=== PATIENT | male | born 1945 | race Caucasian/White ===

== ENCOUNTER 2024-08-22 13:25 | Outpatient (AMB) | payer MEDICARE, SELFPAY ==
--- NOTE | 2024-08-22 13:27 | A.OFFPC_ITS ---
Vital Signs 08/22/24 13:34 Height 6 ft Weight 230 lb 8 oz BMI 31.3 BP 138/78 Blood Pressure Location Lt brachial Position Sitting Respiration 13 Pulse 72 Pulse Source Pulse Oximeter Temp 97.1 F Temp Source Oral Pulse Oximetry (%) 96 Oxygen Delivery Method Room Air Intake Visit Reasons: est care Intake Note: New patient to [facility] Corrections Identification Technician Required: No Allergies No Known Allergies Allergy (Verified 08/22/24 13:41) Medication List - Last Reconciled 08/22/24 by ISIDRO LiuP- albuterol sulfate 90 mcg/actuation 2 puffs inhalation QID PRN albuterol sulfate 2.5 mg inhalation alcohol swabs pad topical BID aspirin 81 mg PO DAILY atorvastatin 10 mg PO DAILY blood sugar diagnostic (FreeStyle Lite Strips) As directed blood-glucose meter (FreeStyle Lite Meter kit) As directed budesonide-formoterol 80-4.5 mcg/actuation (Breyna) 2 puffs inhalation cetirizine 10 mg PO DAILY PRN fluticasone propionate 50 mcg/actuation 1 spray intranasal BID lisinopril 2.5 mg PO DAILY metformin 500 mg PO DAILY Tobacco use date assessed: 08/22/24 Fall risk assessment: No Falls in past year Last assessed Fall Risk: 08/22/24 Dental Screening Dental Screen Date: 08/22/24 Did you have a dental visit in the last 12 months?: Yes Did you have a dental problem in the last 6 months where you did not have access to dental care?: No Was dental information given to patient?: Patient has dentist HPI HPI Comments History of Present Illness Details 78 y/o M with obesity, COPD, DM2, HLD, H TN, Vegetarian Diet Health Maintenance Tdap today Specialists: Harris Jacobson in pulm rehab History of Present Illness - The patient is a 78-year-old male pres enting to establish care. Previous PCP: Dr Barnard - i do not have any records. - Significant history of type 2 diabetes , hypertension, hyperlipidemia, and COPD. - Blood glucose control improved with di etary changes, maintaining vegetarian diet. Was on Metformin but stopped taking - COPD symptoms improved post-treatment with a 10-day prednisone regimen. Was tx w/ several ABT. Managed by Pulm. - Reports having imaging of lungs done a nd eval by a surgeon at [facility] for bx, but this did not occur. - Obesity with BMI of 31.3. - Previous medications prescribed includ e albuterol, cetrizine, lisinopril, metformin, aspirin, and atorvastatin. He is only taking his inhalers, nothing else. - Active lifestyle as a reed noted. Review of Systems - Cardiovascular: Denies chest pain. Rep orts blood pressure management with medications. - Respiratory: Reports history of severe respiratory infection, now improved. Engaged in pulmonary rehab. - Endocrine: Reports blood sugar levels usually around 140 mg/dL; morning fasting levels around 106 mg/dL. - Gastrointestinal: Denies gastrointesti nal symptoms. - Musculoskeletal: Denies joint pain or swelling. - Neurological: Denies neurological symp toms. - Dermatological: Denies skin rashes or lesions. Physical Exam Exam Awake alert NAD Scleras nonicteric bilat MMM RRR LS dim throughout, faint exp wheezes, no cough No edema ble, + varicose veins, skin intact, hairless Mood and affect appropriate Results - Labs: A1c level pending. - Imaging: Previous CAT scan with dye co mpleted. - Tests: EKG completed, reportedly katie l. Discussion Notes The patient was informed of their current medical conditions being managed, including type 2 diabetes, COPD, and hypertension. Dietary modifications and regular blood glucose monitoring were encouraged to maintain sugar levels within the target range. Respiratory management was discussed, and inhaler use was reviewed. Enrollment in pulmonary rehab was acknowledged as beneficial for improving lung function. The patient was advised to continue current medications and dietary modifications. I will follow up with pending lab results, and the patient should return for regular check-ups or if any concerns arise. Assessment and Plan 1. Type 2 Diabetes Mellitus - diet controlled currently, was on metf ormin before - Emphasize diet and monitoring. - Check A1c. 2. Chronic Obstructive Pulmonary Disease - Use albuterol PRN & Breyna as directed , - Attend pulmonary rehab. - Routine fu with Dr Samuel Wheatley today 3. Essential Hypertension - was on lisinopril, WNL today w/o meds. - Monitor regularly. 4. Hyperlipidemia - Stopped atorvastatin. Check labs 5. Obesity - Advise on lifestyle changes for manage ment. 6. Environmental Allergies - Use cetrizine and Flonase PRN. Patient Instructions - Continue current medications as prescr ibed. - Monitor blood sugar daily and follow d ietary recommendations. - Use albuterol inhaler as needed and at tend pulmonary rehab sessions. - Maintain regular follow-up appointment s. - Report any significant changes or conc erns to our office promptly. - Follow up with lab results for further management. - RTO 3 months sAWV, sooner PRN, labs to day, get records for review. Consent The patient consented to lab work including A1c testing to assess diabetic control. Consent was also obtained verbally for continued medication management and lifestyle modification discussions. Patient was informed and verbally consented to the use of an ambient scribe for clinic note documentation during this visit. Total time spent caring for the patient today was 40 minutes. This includes time spent before the visit reviewing the chart, time spent during the visit, and time spent after the visit on documentation, reviewing laboratory results, diagnostic imaging, medications, performing a medically necessary evaluation, counseling on diagnoses, care coordination, ordering appropriate tests, ordering appropriate medications, review of tests performed by other providers, reporting test results with the patient, communication with other healthcare providers. [facility] Medical History (Updated 08/22/24 @ 17:41 by Libia Mcgovern [facility]) No pertinent family history No pertinent past medical history Surgical History (Updated 08/22/24 @ 13:34 by Devorah Tobias MA) No pertinent past surgical history Social History (Updated 08/22/24 @ 13:33 by Devorah Tobias MA) Household Members: Spouse Housing: House Are you a primary medical care evaluation specialist to a significant other at home: No Do you presently have visiting nurse or other home services: No Alcohol intake: current Alcohol intake frequency: a few times a month Patient Tobacco Use Status: Never used Tobacco e-Cigarette/Vaping Use: Never Used Second Hand Smoke Exposure: No service: No Current occupational status: retired Cognitive needs: No Hearing needs: No Vision needs: No Questionnaire PHQ-9 Over the last 2 weeks, how often have you been bothered by any of the following problems? 1. Little interest or pleasure in doing things: not at all 2. Feeling down, depressed, or hopeless: not at all 3. Trouble falling or staying asleep, or sleeping too much: not at all 4. Feeling tired or having little energy: not at all 5. Poor appetite or overeating: not at all 6. Feeling bad about yourself - or that you are a failure or have let yourself or your family down: not at all 7. Trouble concentrating on things, such as reading the newspaper or watching television: not at all 8. Moving or speaking so slowly that other people could have noticed. Or the opposite - being so fidgety or restless that you have been moving around a lot more than usual: not at all 9. Thoughts that you would be better off or of hurting yourself in some way: not at all Total score: 0 Depression Screening Interpretation: Negative Depression Screening Done: Yes 83582 - PHQ-9 Billing: Yes Source: Developed by Drs. Evangelista Sullivan, Marie Ca, Randell Pino and colleagues, with an educational jeremiah from [employer]. Thrive Questionnaire Date Thrive assessed: 08/22/24 I am a: Patient What is your living situation today?: I have a steady place to live Within the past 12 months, did the food you bought not last and you didn't have the money to get more?: Never true Within the past 12 months, did you worry whether your food would run out before you got money to buy more?: Never true Do you have trouble paying for medicines?: No Do you have trouble getting transportation to medical appointments?: No Do you have trouble paying your heating and electricity bill?: No Do you have trouble taking care of your child, family member or friend?: No Do you have trouble with day-to-day activities such as bathing, preparing meals, shopping, managing finances, etc.?: No Are you currently unemployed and looking for a job?: No Are you interested in more education?: Yes Please select the resources that you would like help with: None Currently or been in a relationship where the following occur: No concerns reported THRIVE Score: 0 AUDIT C Alcohol Use Questionnaire (AUDIT-C) 1. How often do you have a drink containing alcohol?: 2-3 times a week 2. How many drinks containing alcohol do you have on a typical day when you are drinking?: 1 or 2 3. How often do you have six or more drinks on one occasion?: Never Total Score: 3 Score Reviewed/Action Taken: Yes NERY-7 AMB Questionnaire NERY-7 Date NERY - 7 assessed: 08/22/24 Feeling nervous, anxious, or on edge: 0 = Not at all Not being able to stop or control worryin = Not at all Worrying too much about different things: 0 = Not at all Trouble relaxin = Not at all Being so restless that it is hard to sit still: 0 = Not at all Becoming easily annoyed or irritable: 0 = Not at all Feeling afraid as if something awful might happen: 0 = Not at all Total NERY-7 score (0-4 normal; 5-9 mild; 10-14 moderate; 15-21 severe): 0 Source: Developed by Drs. Evangelista Sullivan, Marie Ca, Randell Pino and colleagues, with an educational jeremiah from [employer]. NERY-7 Assessment Billing NERY-7 Assessment Tool: NERY-7 Assessment 74128 Physical exam (Primary Care) Vital Signs: Last Vital Signs Temp 97.1 F 08/22/24 13:34 Pulse 72 08/22/24 13:34 Resp 13 08/22/24 13:34 BP 138/78 08/22/24 13:34 Pulse Ox 96 08/22/24 13:34 Oxygen Delivery Method Room Air 08/22/24 13:34 BMI result Body Mass Index 31.3 BMI Assessment/Plan discussion: High BMI High, discussed plan: lifestyle Tobacco/Smoking Status: Tobacco use Status Tobacco use date assessed 08/22/24 08/22/24 13:30 Patient Tobacco Use Status Never used Tobacco 08/22/24 13:33 e-Cigarette/Vaping Use Never Used 08/22/24 13:33 PHQ-9: PHQ-9 Score PHQ-9: Total score 0 08/22/24 13:41 Depression Screening Interpretation: Negative Thrive Assessment: Date of Thrive Assessment Date Thrive assessed 08/22/24 08/22/24 13:30 Currently or been in a relationship where the following occur: No concerns reported Immunizations Boostrix Tdap 2.5 Lf unit-8 mcg-5 Lf/0.5 mL intramuscular syringe Performing Provider: JACOB Liu Performing Location[facility] Administered by: Devorah Tobias MA on 08/22/24 13:42 Dose Route Admin Location Dispensed Lot Number Expiration Date NDC Grip Boss 0.5 mL IM Left Deltoid 0.5 mL [id number] 11/17/26 [id number] [employer] VIS Given Date VIS Provided VIS Publication Date 08/22/24 Single Vaccine 20 Eligibility Eligibility Date Funding Source Not VFC Eligible 08/22/24 Private Coding Level of Care Code New Pt Level 4 (23780) Complex EM visit Add On G2211 Diagnoses Encounter to establish care Z76.89 Need for Tdap vaccination Z23 Obesity (BMI 30-39.9) E66.9 DM type 2 causing complication E11.8 Mixed hyperlipidemia E78.2 Hyperlipidemia type: mixed hyperlipidemia Panlobular emphysema J43.1 COPD type: emphysema Emphysema type: panlobular Vegetarian diet Z78.9 Environmental allergies Z91.09 Primary hypertension I10 Hypertension type: primary hypertension Additional Codes NERY-7 Assessment Billing - NERY-7 Assessment Tool: NERY-7 Assessment 32922 ([id number]) PHQ-9 - 85640 - PHQ-9 Billing: Yes ([id number]) Assessment & Plan Assessment & Plan (1) Encounter to establish care: Code(s): Z76.89 - Persons encountering health services in other specified circumstances (2) Need for Tdap vaccination: Code(s): Z23 - Encounter for immunization Category: Medical (3) Obesity (BMI 30-39.9): Code(s): E66.9 - Obesity, unspecified Category: Medical (4) DM type 2 causing complication: Code(s): E11.8 - Type 2 diabetes mellitus with unspecified complications Category: Medical (5) HLD (hyperlipidemia): Code(s): E78.5 - Hyperlipidemia, unspecified Category: Medical Qualifiers: Hyperlipidemia type: mixed hyperlipidemia Qualified Code(s): E78.2 - Mixed hyperlipidemia (6) COPD (chronic obstructive pulmonary disease): Code(s): J44.9 - Chronic obstructive pulmonary disease, unspecified Category: Medical Qualifiers: COPD type: emphysema Emphysema type: panlobular Qualified Code(s): J43.1 - Panlobular emphysema (7) Vegetarian diet: Code(s): Z78.9 - Other specified health status Category: Social Hx (8) Environmental allergies: Code(s): Z91.09 - Other allergy status, other than to drugs and biological substances Category: Medical (9) HTN (hypertension): Code(s): I10 - Essential (primary) hypertension Category: Medical Qualifiers: Hypertension type: primary hypertension Qualified Code(s): I10 - Essential (primary) hypertension Plan . Orders: Orders Comprehensive Met. Panel Today E11.8 - Type 2 diabetes mellitus with unspecified complications, E78.5 - Hyperlipidemia, unspecified, Z78.9 - Other specified health status Ferritin Today E11.8 - Type 2 diabetes mellitus with unspecified complications, E78.5 - Hyperlipidemia, unspecified, Z78.9 - Other specified health status Hemoglobin A1c Today E11.8 - Type 2 diabetes mellitus with unspecified complications, E78.5 - Hyperlipidemia, unspecified, Z78.9 - Other specified health status Lipid Panel Today E11.8 - Type 2 diabetes mellitus with unspecified complications, E78.5 - Hyperlipidemia, unspecified, Z78.9 - Other specified health status Microalbumin, Random (w Creat) Today E11.8 - Type 2 diabetes mellitus with unspecified complications, E78.5 - Hyperlipidemia, unspecified, Z78.9 - Other specified health status TSH reflex Free T4 Today E11.8 - Type 2 diabetes mellitus with unspecified complications, E78.5 - Hyperlipidemia, unspecified, Z78.9 - Other specified health status Vitamin B12 and Folate Today E11.8 - Type 2 diabetes mellitus with unspecified complications, E78.5 - Hyperlipidemia, unspecified, Z78.9 - Other specified health status Vitamin D 25-OH Total Today E11.8 - Type 2 diabetes mellitus with unspecified complications, E78.5 - Hyperlipidemia, unspecified, Z78.9 - Other specified health status TDaP Immunization Today Z23 - Encounter for immunization Complete Blood Count no Diff Today E11.8 - Type 2 diabetes mellitus with unspecified complications, E78.5 - Hyperlipidemia, unspecified, Z78.9 - Other specified health status IRON PROFILE Today E11.8 - Type 2 diabetes mellitus with unspecified complications, E78.5 - Hyperlipidemia, unspecified, Z78.9 - Other specified health status PSA, Ultra Sensitive Today E11.8 - Type 2 diabetes mellitus with unspecified complications, E78.5 - Hyperlipidemia, unspecified, Z78.9 - Other specified health status Patient Instructions: Patient Instructions - Continue current medications as prescribed. - Monitor blood sugar daily and follow dietary recommendations. - Use albuterol inhaler as needed and attend pulmonary rehab sessions. - Maintain regular follow-up appointments. - Report any significant changes or concerns to our office promptly. - Follow up with lab results for further management. RTO in 3 months Walk-In Care (Urgent Care): We Make it Easy Walk-in for urgent medical issues such as: ? Seasonal Allergies ? Insect Bites ? Cough ? Diarrhea ? Acute Asthma Attacks ? Back, Knee or Joint Pain ? Ear Infection ? Fever without a Rash ? Headaches ? Nausea ? [place] [facility], Rash or Skin Irritation ? Sore Throat ? Sports Physicals ? Vomiting Most insurances are accepted. Patients do not need to be part of the [facility] to seek care at the walk-in clinic. Locations [facility] , [place] [address] ? [phone] [facility] in [place] provides services to ages 18 and over. Open Wednesday-Wednesday: 8 a.m. to 5 p.m. and Wednesday: 9 a.m. to 3 p.m.* *Hours may vary due to staffing availability. To confirm Walk-In Care hours in [place], please call [phone]. [address] [place] [address] ? [phone] [facility] in [place] provides services to ages 12 and over. Open Wednesday-Wednesday: 8 a.m. to 5 p.m. Hours may vary due to staffing availability. To confirm Walk-In Care hours in [place], please call [phone]. LABORATORY SERVICES: [facility] ? Primary Location [address] [place] [address] Wednesday through Wednesday 6:00 AM ? 5:00 PM Wednesday 7:00 AM ? 11:00 AM* [phone] The [facility] is centrally located near the front entrance of the Medical Center for easy outpatient access. Convenient parking is provided for outpatients. *Hours may vary due to staffing availability. To confirm Laboratory hours for any location, please call [phone]. Offsite Location For your convenience, we offer offsite laboratory draw stations at the following locations: [address] [place] [address] ? [facility] [address], [address], [place] Wednesday through Wednesday 7:30 AM ? 1:00 PM* [phone] *Hours may vary due to staffing availability. To confirm Laboratory hours for any location, please call [phone]. [place] ? [facility] [address] [facility] Wednesday through Wednesday 6:00 AM ? 3:30 PM* Wednesday 6:30 AM ? 3 PM* [phone] *Hours may vary due to staffing availability. To confirm Laboratory hours for any location, please call [phone]. [address] [facility] Wednesday through Wednesday 7:30 AM ? 4:00 PM* [phone] *Hours may vary due to staffing availability. To confirm Laboratory hours for any location, please call [phone] [place] [address] Wednesday through 9:00 AM ? 4:00 PM* *Hours may vary due to staffing availability. To confirm Laboratory hours for any location, please call [phone]. Appointments are not necessary. Walk-ins are welcome. Like all the departments throughout the [facility], our Lab undergoes frequent reviews to ensure the quality and accuracy of test results, and our staff takes special pride in its status as a nationally accredited facility. Patient Portal: ONE PATIENT. ONE RECORD. BETTER CARE. [facility] has a fully integrated, cutting- edge mobile electronic health information system that has revolutionized the way we care for our patients and manage our organization. This system improves communication and coordination enabling us to provide safe, higher-quality care, and an overall positive experience for staff and patients. Our first priority, as always, is to deliver the highest quality care possible. The system is running in the background supporting that priority. This portal is for all [facility] services and practices. If you are experiencing any technical difficulties with enrolling or logging into the Patient Portal please complete the [facility] Patient [facility] Technical Support Form. [facility] now offers a new secure on-line interactive tool for patients to review their health information ? ?Patient Portal. This interactive web portal will enable patients and their families to take an active role in their care by providing easy, secure access to their health information via the internet. The Patient Portal provides patients with instant access to their health information, including laboratory results, medications, allergies, demographic information, visit history, and more. In addition to managing their own care, parents and health care proxies with authorized consent will appreciate the ability to access the records of those individuals for whom they provide care. Please note: if you wish to gain access (Proxy) to another patient?s portal, you will be required to come to the Medical Records Department in person at [facility]. Both the patient giving proxy access and the proxy will need to provide photo identification and complete the appropriate authorization. The Patient Portal also allows track their appointments online. The [facility] Patient Portal also saves patients time by allowing them to submit updates to their demographic and contact information prior to their visits. Portal email notifications will also alert patients to any new activity on their portal, such as test results and new appointments. In order to initially enroll in the [facility] Patient Portal, you will need to enter some required information including the following: * your [facility] Medical Record number * your personal home email address * name * date of Please note: In order to enroll in the [facility] Patient Portal, we need to have your email address on file in your electronic medical record. ?The email address needs to be specific for one person (yourself) in order for your Portal enrollment to be successful. ?You can update your email address in person with our Registration staff when you are registering for a hospital visit. ?Otherwise, you will need to come to the Health Information Management (Medical Records) Department at [facility]. ?We are open from Wednesday ? Wednesday from 7:30 a.m. ? 4:30 p.m. ?You will be required to present a photo id. Once you have successfully enrolled in the Patient Portal, you will receive a one-time user id and password for the Portal, sent to your email address. ?This will allow you to log into the Patient Portal within 99 hrs and reset your own logon id and password, and define personal security questions. ?Once your permanent login and password have been set, you can log into the [facility] Patient Portal at any time via the blue button above or from the Portal Logon button on any page of the [facility] website. [facility] encourage all of our patients to enroll in Patient Portal as it presents a valuable opportunity for patients and their families to actively participate in their care and stay healthy Welcome to [facility]. ?We look forward to working with you.
[2024-08-22 13:34] VITALS: BP 138/78; PULSE 72; RESP 13; TEMP 36.2; O2SAT 96; BMI 31.3
--- OUTSIDE RECORDS SUMMARY | 2024-08-22 15:02 | XMS_ITS | Patient Health Record ---
Author Organization 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
== END 2024-08-22 13:57 | disposition home or self-care (01) ==
LOC: HO.HMCFM 13:26
PROVIDERS: PCP Nurse Practitioner Family; Visit Provider Nurse Practitioner Family
DX: E11.8 Type 2 diabetes mellitus with unspecified complications (principal); J43.1 Panlobular emphysema; E66.9 Obesity, unspecified; Z68.31 Body mass index [BMI] 31.0-31.9, adult; Z76.89 Persons encountering health services in other specified circumstances; Z23 Encounter for immunization; E78.2 Mixed hyperlipidemia; Z78.9 Other specified health status; Z91.09 Other allergy status, other than to drugs and biological substances; I10 Essential (primary) hypertension

== ENCOUNTER → 2024-08-22 13:25 | Outpatient (BNVA) | payer MEDICARE, SELFPAY | PROVIDERS: PCP Nurse Practitioner Family; Visit Provider Nurse Practitioner Family | DX: Z13.89 Encounter for screening for other disorder (principal) | CPT/HCPCS: 90471; 90715; 96127; 99202 ==

== ENCOUNTER 2024-08-22 14:02 | Outpatient (REF) | payer MEDICARE, SELFPAY ==
[2024-08-22 18:44] LABS: Hematocrit 42.4 % (42.0-52.0); Hemoglobin 14.6 g/dl (14.0-18.0); Mean Corpuscular HGB Conc 34.4 g/dl (31.0-36.0); Mean Corpuscular Hemoglobin 30.2 pg (27.0-33.0); Mean Corpuscular Volume 87.8 fL (80.0-98.0); Mean Platelet Volume 10.2 fL (9.4-12.4); Platelet Count 256 X10*3/uL (160-400); Red Blood Count 4.83 X10*6/uL (4.60-5.80); Red Cell Distribution Width 13.2 % (11.0-16.0); White Blood Count 10.4 X10*3/uL (4.8-10.8)
[2024-08-22 19:04] LABS: Alanine Aminotransferase 16 U/L (0-40); Albumin Level 4.3 g/dL (3.5-5.0); Alkaline Phosphatase 71 U/L (39-117); Anion Gap 11 (12-20); Aspartate Amino Transferase 24 U/L (5-37); Bilirubin Total 0.4 mg/dL (0.0-1.0); Blood Urea Nitrogen 20 mg/dL (9-16); Calcium 9.5 mg/dL (8.4-10.2); Carbon Dioxide 26 mmol/L (22-29); Chloride 106 mmol/L (96-108); Cholesterol 198 mg/dL (<200); Estimated Glomerular Filt Rate > 60; Glucose Random 98 mg/dL (60-115); HDL Cholesterol 51 mg/dL (>40); Iron 74 mcg/dL (45-160); LDL Cholesterol Calculated 133 mg/dL (<100); Percent Iron Saturation 24 % (15-50); Potassium 4.3 mmol/L (3.3-5.1); Sodium 139 mmol/L (135-145); Total Iron Binding Capacity 313 mcg/dL (228-428); Total Protein 7.3 g/dL (6.5-8.0); Triglycerides 70 mg/dL (<150); Unsaturated Iron Binding 239 ug/dL
[2024-08-22 19:08] LABS: Creatinine Urine 50.37 mg/dL; Microalbum/Creatinine Ratio Ur 31.7 ug/mg cr (<30)
[2024-08-22 19:23] LABS: Ferritin 81 ng/mL (20-250); TSH reflex Free T4 0.96 uIU/mL (0.32-4.0); Vitamin D 25-OH Total 49.8 ng/mL (>30)
[2024-08-22 19:26] LABS: Folate 10.2 ng/mL (> or = 4.0); Vitamin B12 495 pg/mL (200-900)
[2024-08-23 05:49] LABS: Estimated Average Glucose 120 mg/dL; Hemoglobin A1C 150.4261 umol/L; Hemoglobin A1c % 5.8 % (<6.0)
[2024-08-25 21:49] LABS: PSA, Ultra Sensitive 4.11 ng/mL
== END 2024-08-22 14:03 | disposition home or self-care (01) ==
LOC: HO.WFDLDS 14:02
PROVIDERS: Visit Provider Nurse Practitioner Family
DX: Z76.89 Persons encountering health services in other specified circumstances (principal); Z23 Encounter for immunization; E66.9 Obesity, unspecified; Z68.31 Body mass index [BMI] 31.0-31.9, adult; E11.8 Type 2 diabetes mellitus with unspecified complications; E78.2 Mixed hyperlipidemia; J43.1 Panlobular emphysema; I10 Essential (primary) hypertension; N40.1 Benign prostatic hyperplasia with lower urinary tract symptoms; R35.1 Nocturia; M54.12 Radiculopathy, cervical region; Z87.891 Personal history of nicotine dependence; Z12.5 Encounter for screening for malignant neoplasm of prostate; Z78.9 Other specified health status
CPT/HCPCS: 36415; 80053; 80061; 82043; 82306; 82570; 82607; 82728; 82746; 83036; 83540; 84153; 84443; 85027; 90471; 90715; 96127; 99202

== ENCOUNTER 2024-10-23 14:49 | Outpatient (AMB) | payer MEDICARE, SELFPAY ==
--- OUTSIDE RECORDS SUMMARY | 2024-10-23 14:54 | XMS_ITS | Patient Health Record ---
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
--- NOTE | 2024-10-23 14:58 | A.OFFVIS_ITS ---
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 Mcgovern. He has a past medical history of obesity, COPD, DM2, HLD, HTN, BPH with nocturia, cervical radiculopathy, and former smoker. He presents to the office today as a new patient for an elevated PSA. In discussion with the patient today he reports having recently established primary care services through [facility] at which time he underwent lab work and was noted to have an elevated PSA and recommendations were made for urology referral for further assessment evaluation. In review of patient's chart it appears PSA 09/13 4.1. When asked he denies any known family history of prostate cancer. JAZZY was offered however deferred. He does report episodes of nocturia up to 3 times per night however does not find this bothersome and feels he self manages. He otherwise denies any bothersome urinary issues. He denies urinary urgency, urinary frequency, incontinence, hematuria, dysuria, foul smelling urine, changes to urinary stream, flank pain, fever, and or chills. We did discussed potential causes of elevated PSA as well as further treatment options and risks and benefits of these treatment options. In office urinalysis results were reviewed with the patient today. All questions were answered. 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 He otherwise offers no other issues or concerns at this time. [facility] Medical History (Updated 10/23/24 @ 15:45 by JACOB Charles) No pertinent past medical history No pertinent family history Surgical History (Updated 08/22/24 @ 13:34 by Devorah Tobias MA) No pertinent past surgical history Social History (Updated 08/22/24 @ 13:33 by Devorah Tobias MA) Household Members: Spouse Both parents involved: No Caregiver staying overnight: No Housing: House Are you a primary hospice care sales consultant to a significant other at home: No Do you presently have visiting nurse or other home services: No 75 years or older and lives alone: No Alcohol intake: current Alcohol intake frequency: a few times a month Patient Tobacco Use Status: Never used Tobacco e-Cigarette/Vaping Use: Never Used Second Hand Smoke Exposure: No service: No Current occupational status: retired Cognitive needs: No Hearing needs: No Vision needs: No Review of Systems Const All systems reviewed & are unremarkable except as noted in HPI and below Physical Exam Const General: cooperative, healthy appearing, comfortable, no acute distress, well developed, alert and awake Orientation/consciousness: patient oriented x3 Limitations: no limitations HEENT Head: Yes normal to inspection, Yes normocephalic and Yes atraumatic Ears: hearing grossly normal bilaterally Eyes General: appearance normal, both eyes and all related structures Neck Neck: Yes normal visual inspection and Yes trachea midline Chest Chest palpation & inspection: normal inspection of the chest Resp Effort & Inspection: normal respiratory effort and able to speak in complete sentences Cardio Rate: regular rate GI Inspection: Yes normal to inspection General: Yes no CVA tenderness Back/Spine/Pelvis Back: no CVA tenderness Skin General skin exam: no rashes or lesions noted Neuro General: patient oriented x3 Extrem General: Yes normal to inspection Psych Appearance: grossly normal and well kempt Mental Status: mental status grossly normal Speech and movement: Normal speech and movement present and Clear speech present Affect: normal affect Attitude: cooperative Thought process: Normal thought process present Thought content: Normal thought content present Insight: Fair insight present (Psych) Judgement: Fair judgement present (Psych) Assessment & Plan Assessment & Plan (1) Elevated PSA, less than 10 ng/ml: Code(s): R97.20 - Elevated prostate specific antigen [PSA] Category: Medical (2) Nocturia: Code(s): R35.1 - Nocturia Category: Medical Plan In office urinalysis results reviewed with the patient today; as noted above. We discussed potential causes of elevated PSA as well as further treatment options and risks and benefits of these treatment options. Will obtain redraw of PSA total and free for further assessment evaluation; we discussed importance of limiting caffeine morning of blood work, no heavy lifting 1-2 days prior, and no sex or ejaculation the night before morning of the blood work. JAZZY offered however deferred. Will obtain retroperitoneal ultrasound for further assessment evaluation. He denies any bothersome urinary issues. We did discussed the importance of limiting fluids 2-3 hours prior to bed to decrease episodes of nocturia. He reports be happy with current voiding parameters. Follow-up in 1-3 months with imaging and labs to be completed prior; or sooner with any issues, concerns, and or questions. Orders: Orders US retroperitoneal comp Today R35.1 - Nocturia, R97.20 - Elevated prostate specific antigen [PSA] PSA,Total (Free>4and<10) Today R35.1 - Nocturia, R97.20 - Elevated prostate specific antigen [PSA] Patient Instructions: The patient had an opportunity to ask questions regarding the treatment plan. All questions were answered. Physical exam, labs, and imaging were discussed and reviewed in detail. As well as risks, benefits, and discussion of treatment choices. No major barriers to understanding were identified. The patient expressed understanding and agreement with the above treatment plan. The patient was made aware they should contact our office by phone for worsening of their current condition, the appearance of new symptoms, or with any questions or concerns. Compliance is encouraged with any medications and follow up testing that is ordered. It is a privilege to be allowed the opportunity to participate in? your urological care.? Again, if you have any questions or concerns If you have any questions or concerns please do not hesitate to contact me. The office is [phone]. This note is constructed using voice recognition software. While every effort has been made to ensure accuracy manager new product errors may have been included. Yours sincerely, JACOB Charles Coding Level of Care Code New Pt Level 3 (39999) Diagnoses Elevated PSA, less than 10 ng/ml R97.20 Nocturia R35.1
== END 2024-10-23 15:44 | disposition home or self-care (01) ==
LOC: HO.HUSH 14:50
PROVIDERS: PCP Nurse Practitioner Family; Visit Provider Nurse Practitioner Family
DX: R97.20 Elevated prostate specific antigen [PSA] (principal); R35.1 Nocturia; Z13.9 Encounter for screening, unspecified
CPT/HCPCS: 99203

== ENCOUNTER → 2024-10-23 14:49 | Outpatient (BNVA) | payer MEDICARE, SELFPAY | PROVIDERS: PCP Nurse Practitioner Family; Visit Provider Nurse Practitioner Family | DX: R97.20 Elevated prostate specific antigen [PSA] (principal); R35.1 Nocturia | CPT/HCPCS: 81003; 99202 ==

== ENCOUNTER 2024-11-28 12:02 | Outpatient (AMB) | payer MEDICARE, SELFPAY ==
--- NOTE | 2024-11-28 12:05 | AM.OFFVISMDC ---
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: No Allergies No Known Allergies Allergy (Verified 10/23/24 15:45) Medication List - Last Reconciled 11/28/24 by Libia Mcgovern, [facility]- albuterol sulfate 90 mcg/actuation 2 puffs inhalation QID PRN albuterol sulfate 2.5 mg inhalation alcohol swabs pad topical BID aspirin 81 mg PO DAILY blood sugar diagnostic (FreeStyle Lite Strips) As directed blood-glucose meter (FreeStyle Lite Meter kit) As directed budesonide-formoterol 80-4.5 mcg/actuation (Breyna) 2 puffs inhalation ezetimibe (Zetia) 10 mg PO DAILY lisinopril 2.5 mg PO DAILY HPI HPI Comments History of Present Illness Details Here today for AWV. The Medicare Annual Wellness Visit (AWV) is a yearly appointment with a health professional to identify health risks and help reduce them and to create or update a personalized prevention plan. During a Medicare AWV, health professionals should also review any current opioid prescriptions, detect any cognitive impairment, and establish or update medical and family history. 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 Health Maintenance: See scanned preventative medicine assessment with personalized health plan and screening schedule. Colon: Tellez 5-6 years, per report; will request. Vaccines: Tdap 2024, Advised to get Pneumococcal, Shingles and Flu at pharmacy AAA screen: echo 06/2024 by outside provider not completed. Ordered today. EKG: done today [facility] [place] of Care: Dr Baker reports CT scan done 10/2024, i dont have this report - requested. 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 Patient instructions were provided to the patient in written or electronic format. I have reviewed and verified the above information. History of Present Illness - The patient is a 78-year-old male presenting for an annual Medicare wellness visit. - Type 2 diabetes mellitus managed via diet. - Coronary artery disease history. On aspirin. Non tolerant of statin. Ok w/ starting Zetia. - Microalbuminuria, stopped lisinopril for 15 days, thought it made him feel funny, cannot elaborate further; he has since resumed. Feels ok. - COPD managed with Breyna and albuterol/Pulm. - History of pulmonary fibrosis. - BPH managed by [facility]. 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 - He maintains a vegetarian diet. - The patient is a former smoker, having quit a long time ago. - He regularly monitors his weight and has a BMI of 31.5. Health Maintenance - Vaccinations: Needs flu and pneumonia vaccines; no shingles vaccine documented. - Lifestyle: Vegetarian diet adherent; weight management ongoing. - Patient educated on the importance of advanced care planning and received materials for a healthcare proxy. - Recommendation for annual dilated eye exam due to diabetes. Declined Review of Systems - Respiratory: Reports occasional shortness of breath. - Cardiovascular: Denies chest pain. - Dermatologic: Reports dry skin in ears. - Musculoskeletal: Denies joint pain. - Neurologic: Denies focal neurological deficits. - Endocrine: Denies hypoglycemia symptoms. - Ophthalmologic: Regular eye exams advised for diabetes, last screening done at the clinic. Physical Exam General: Well developed, well nourished, in no acute distress. Appears older than stated age. Head: Normocephalic, atraumatic. Eyes: Pupils are equal, round and reactive to light and accommodation. Conjunctivae are clear. Vision grossly normal. Ears: TMs clear AU, EACS WNL. External ear shows some crusting Nose: Patent, without discharge. Neck: Supple, no adenopathy or thyromegaly. Breast: Edu on SBE Lungs: Fine crackles BLL, dim throughout Heart: Regular rate and rhythm. No murmurs, click, rubs or gallops are noted. Abdomen: Bowel sounds present in all quadrants. The abdomen is soft, nontender, with no masses or organomegaly noted. umbilical hernia noted. : Deferred. Reviewed DARIO & recommendations Pulses: Peripheral pulses are equal and palpable bilaterally. Extremities: No clubbing, cyanosis nor edema is noted. + varicose veins ble Neurologic: Gait and station normal. Cranial Nerves 2-12 intact. Motor strength grossly symmetrical and intact. No sensory loss. Balance normal. Skin: No rashes, ulcers, or lesions noted. Turgor is good. Skin color is good. Hair and nails are without abnormalities. Noted dry skin in ears. Psych: Normal eye contact, affect and mood appropriate, and normal interactions. Patient is alert and appropriate to context. Discussion Notes During today's visit, I advised the patient that the management of his microalbuminuria was essential, and restarting lisinopril is beneficial even at a low dose primarily for renal protection, not hypertension. I recommend the addition of Zetia for hyperlipidemia management, discussing its risk-benefit profile as an adjunct to non-statin therapy, albeit being less effective but with a lower side effect profile. There's a discussion about the importance of the flu and pneumonia vaccinations, given his history of pneumonia and COPD. We discussed the need for routine follow-ups and maintaining a stable lifestyle with his ongoing diet and physical activity. I also explained the scheduling for an echocardiogram and importance of managing his cardiac and respiratory health conditions. Consent was obtained before proceeding with Zetia, emphasis on tolerability and side effects was discussed. Patient was given time to ask questions. All questions were answered to their satisfaction. Assessment and Plan 1. Type 2 Diabetes Mellitus - Continue diet control, HbA1c monitoring. 2. Coronary Artery Disease - Continue aspirin, start Zetia for lipids. 3. Microalbuminuria - Cont lisinopril, monitor urine levels. 4. Chronic Obstructive Pulmonary Disease (COPD) - Maintain inhaler use, vaccinate against flu/pneumonia. 5. Pulmonary Fibrosis FU with pulm. Patient Instructions - Keep following your diet to manage diabetes. - Take lisinopril and start taking Zetia as instructed. - Go to the pharmacy for flu and pneumonia vaccines. - Echo scheduled - RTO 6 mo routine visit, sooner as needed. Consent Patient was informed and verbally consented to the use of an ambient scribe for clinic note documentation during this visit. An additional 30 minutes was spent addressing the problem(s) noted at todays visit. This includes time spent before the visit reviewing the chart, time spent during the visit, and time spent after the visit on documentation reviewing laboratory results, diagnostic imaging, medications, performing a medically necessary evaluation, counseling on diagnoses, care coordination, ordering appropriate tests, ordering appropriate medications, review of tests performed by other providers, reporting test results with the patient, communication with other healthcare providers. [facility] Medical History (Updated 11/28/24 @ 16:34 by Libia Mcgovern [facility]) No pertinent family history No pertinent past medical history Surgical History (Updated 08/22/24 @ 13:34 by Devorah Tobias MA) No pertinent past surgical history Social History (Updated 08/22/24 @ 13:33 by Devorah Tobias MA) Household Members: Spouse Both parents involved: No Caregiver staying overnight: No Housing: House Are you a primary health care marketing specialist to a significant other at home: No Do you presently have visiting nurse or other home services: No 75 years or older and lives alone: No Alcohol intake: current Alcohol intake frequency: a few times a month Patient Tobacco Use Status: Never used Tobacco e-Cigarette/Vaping Use: Never Used Second Hand Smoke Exposure: No service: No Current occupational status: retired Cognitive needs: No Hearing needs: No Vision needs: No Questionnaire Medicare Wellness Checkup What [age] your [age]?: [age] What gender do you identify with?: male During the past 4 weeks, how much have you been bothered by emotional problems such as feeling anxious, depressed, irritable, sad or downhearted, and blue?: not at all During the past 4 weeks, has your physical & emotional health limited your social activities with family, friends, neighbors, or groups?: not at all During the past 4 weeks, how much bodily pain have you generally had?: no pain During the past 4 weeks, was someone available to help you if you needed & wanted help?: yes, as much as I wanted During the past 4 weeks, what was the hardest physical activity you could do for at least 2 minutes?: very heavy Can you get to places out of walking distance without help? (For eg., can you travel alone on buses, taxis or drive your car?): Yes Can you go shopping for groceries or clothes without someone's help?: Yes Can you prepare your own meals?: Yes Can you do your housework without help?: Yes Because of any health problems, do you need the help of another person with your personal care needs such as eating, bathing, dressing or getting around the house?: No Can you handle your own money without help?: Yes During the past 4 weeks, how would you rate your health in general?: very good During the past 4 weeks how have things been going for you?: pretty well Are you having difficulties driving your car?: no Do you always fasten your seat belt when you are in a car?: yes, usually During past 4 weeks, have you been bothered by the following: never: Falling or dizzy when standing up, Sexual problems?, Trouble eating well?, Teeth or denture problems?, Problems using the telephone? and Tiredness or fatigue? Have you fallen 2 or more times in the past year?: No Are you afraid of falling?: No Are you a smoker?: no During the past 4 weeks, how many drinks of wine, beer, or other alcoholic beverages did you have?: no alcohol at all Do you exercise for about 20 minutes 3 or more times a week?: yes, all the time Have you been given information to help with the following?: no: Hazards in your house that might hurt you? and no: Keeping track of your medications? How often do you have trouble taking medicines the way you have been told to take them?: I always take medicine as prescribed How confident are you that you can control & manage most of your health problems?: very confident What is your race?: White Activity of Daily Living Bathing - sponge bath, tub bath or shower: receives no assistance (gets in/out by self, if usual bathing means Dressing - getting clothes from closets & drawers, including inner/outer garments & fasteners.: gets clothes & gets completely dressed without help Toileting - going to the 'toilet room' for urine/bowel elimination & cleaning self/arranging clothes: goes to toilet room, cleans self, arranges clothes without help Transfer: moves in & out of bed and chair without help (may use support object) Continence: controls urination/bowel movements completely by self Feeding: feeds self without help Total Score: 0 Information obtained from: patient Using telephone: independent Traveling: independent Shopping: independent Preparing meals: independent Housework: independent Taking medicine: independent Managing money: independent PHQ-9 Over the last 2 weeks, how often have you been bothered by any of the following problems? 1. Little interest or pleasure in doing things: not at all 2. Feeling down, depressed, or hopeless: not at all 3. Trouble falling or staying asleep, or sleeping too much: not at all 4. Feeling tired or having little energy: not at all 5. Poor appetite or overeating: not at all 6. Feeling bad about yourself - or that you are a failure or have let yourself or your family down: not at all 7. Trouble concentrating on things, such as reading the newspaper or watching television: not at all 8. Moving or speaking so slowly that other people could have noticed. Or the opposite - being so fidgety or restless that you have been moving around a lot more than usual: not at all 9. Thoughts that you would be better off or of hurting yourself in some way: not at all Total score: 0 Depression Screening Interpretation: Negative Depression Screening Done: Yes 11587 - PHQ-9 Billing: Yes Source: Developed by Drs. Evangelista Sullivan, Marie Ca, Randell Pino and colleagues, with an educational jeremiah from [employer]. Physical Exam Vital Signs: Last Vital Signs Temp 98 F 11/28/24 12:12 Pulse 80 11/28/24 12:12 Resp 14 11/28/24 12:12 BP 134/68 11/28/24 12:12 Pulse Ox 97 11/28/24 12:12 Oxygen Delivery Method Room Air 11/28/24 12:12 BMI result Body Mass Index 31.5 Office Procedures Vision Screening Right Eye: 20/30 Left Eye: 20/30 Bilateral: 20/25 66386 - Vision Screening Results AMB Hemoglobin A1c AMB Hemoglobin A1c 5.8 % Last Edit by Amanda Antoine CMA on 09/09/25 12:27 Results Reviewed Results Reviewed: Laboratory Last Values Hgb A1c (Clinic) 5.8 % (4.0-6.0) 11/28/24 12:26 Assessment & Plan Assessment & Plan (1) Encounter for subsequent annual wellness visit (AWV) in Medicare patient: Onset Date: ~11/28/24 Code(s): Z00.00 - Encounter for general adult medical examination without abnormal findings (2) ACP (advance care planning): Code(s): Z71.89 - Other specified counseling (3) Cervical radiculopathy: Code(s): M54.12 - Radiculopathy, cervical region (4) CAD (coronary artery disease): Comment: mild aorta vascular calcification, noted on imaging Code(s): I25.10 - Atherosclerotic heart disease of [place] coronary artery without angina pectoris Qualifiers: Coronary Disease-Associated Artery/Lesion type: [place] artery [place] vs. transplanted heart: [place] heart Associated angina: without angina Qualified Code(s): I25.10 - Atherosclerotic heart disease of [place] coronary artery without angina pectoris (5) Pulmonary fibrosis: Code(s): J84.10 - Pulmonary fibrosis, unspecified (6) HTN (hypertension): Code(s): I10 - Essential (primary) hypertension Qualifiers: Hypertension type: primary hypertension Qualified Code(s): I10 - Essential (primary) hypertension (7) DM type 2 causing complication: Code(s): E11.8 - Type 2 diabetes mellitus with unspecified complications (8) Obesity (BMI 30-39.9): Code(s): E66.9 - Obesity, unspecified (9) Vegetarian diet: Code(s): Z78.9 - Other specified health status (10) Microalbuminuria: Code(s): R80.9 - Proteinuria, unspecified (11) Immunization counseling: Code(s): Z71.85 - Encounter for immunization safety counseling (12) HLD (hyperlipidemia): Code(s): E78.5 - Hyperlipidemia, unspecified Qualifiers: Hyperlipidemia type: mixed hyperlipidemia Qualified Code(s): E78.2 - Mixed hyperlipidemia Plan . Orders: Orders AMB Hemoglobin A1c Today E11.8 - Type 2 diabetes mellitus with unspecified complications CA echo transthoracic complete Today E78.2 - Mixed hyperlipidemia, I10 - Essential (primary) hypertension, I25.10 - Atherosclerotic heart disease of [place] coronary artery without angina pectoris AMB Vision Screening Today E11.8 - Type 2 diabetes mellitus with unspecified complications Microalbumin, Random (w Creat) Today E78.2 - Mixed hyperlipidemia, I10 - Essential (primary) hypertension, I25.10 - Atherosclerotic heart disease of [place] coronary artery without angina pectoris Comprehensive Met. Panel Today E78.2 - Mixed hyperlipidemia, I10 - Essential (primary) hypertension, I25.10 - Atherosclerotic heart disease of [place] coronary artery without angina pectoris Lipid Panel Today E78.2 - Mixed hyperlipidemia, I10 - Essential (primary) hypertension, I25.10 - Atherosclerotic heart disease of [place] coronary artery without angina pectoris Vitamin B12 and Folate Today E78.2 - Mixed hyperlipidemia, I10 - Essential (primary) hypertension, I25.10 - Atherosclerotic heart disease of [place] coronary artery without angina pectoris Medications: New ezetimibe (Zetia) 10 mg PO DAILY 90 tabs 2RF Patient Instructions: Health screenings for men You should visit your health care provider regularly, even if you feel healthy. The purpose of these visits is to: Screen for medical issues Assess your risk for future medical problems Encourage a healthy lifestyle Update vaccinations and other preventive care services Help you get to know your provider in case of an illness Information Even if you feel fine, you should still see your provider for regular checkups. These visits can help you avoid problems in the future. For example, the only way to find out if you have high blood pressure is to have it checked regularly. High blood sugar and high cholesterol level also may not have any symptoms in the early stages. Simple blood tests can check for these conditions. There are specific times when you should see your provider or receive specific health screenings. The [place] Preventive Services Task Force publishes a list of recommended screenings. Below are screening guidelines for men ages 40 to 64. BLOOD PRESSURE SCREENING Have your blood pressure checked at least once every year. Watch for blood pressure screenings in your area. Ask your provider if you can stop in to have your blood pressure checked. Ask your provider if you need your blood pressure checked more often if: You have diabetes, heart disease, kidney problems, or are overweight or have certain other health conditions You have a first-degree relative with high blood pressure You are Black Your blood pressure top number is from 120 to 129 mm Hg, or the bottom number is from 70 to 79 mm Hg If the top number is 130 mm Hg or greater or the bottom number is 80 mm Hg or greater, this is considered stage 1 hypertension. Schedule an appointment with your provider to learn how you can lower your blood pressure. Effects of age on blood pressure CHOLESTEROL SCREENING Cholesterol screening should begin at age 35 for men with no known risk factors for coronary heart disease. Repeat cholesterol screening should take place: Every 5 years for men with normal cholesterol levels More often if changes occur in lifestyle (including weight gain and diet) More often if you have diabetes, heart disease, kidney problems, or certain other conditions COLORECTAL CANCER SCREENING If you are under age 45, talk to your provider about getting screened. You may need to be screened if you have a strong family history of colon cancer or polyps. Screening may also be considered if you have risk factors such as a history of inflammatory bowel disease or polyps. If you are age 45 to 75, you should be screened for colorectal cancer. There are several screening tests available: A stool-based fecal occult blood (gFOBT) or fecal immunochemical test (FIT) every year A stool sDNA test every 1 to 3 years Flexible sigmoidoscopy every 5 years or every 10 years with stool testing FIT done every year CT colonography (virtual colonoscopy) every 5 years Colonoscopy every 10 years You may need a colonoscopy more often if you have risk factors for colorectal cancer, such as: Ulcerative colitis A personal or family history of colorectal cancer A history of growths in your colon called adenomatous polyps DENTAL EXAM Go to the dentist once or twice every year for an exam and cleaning. Your dentist will evaluate if you have a need for more frequent visits. DIABETES SCREENING All adults who do not have risk factors for diabetes should be screened starting at age 35 and repeated every 3 years. If you have other risk factors for diabetes, such as a first degree relative with diabetes, overweight or obesity, high blood pressure, prediabetes, or a history of heart disease, you may be tested more often. If you are overweight and have other risk factors, such as high blood pressure and are planning to become , screening is recommended. EYE EXAM Have an eye exam every 2 to 4 years ages 40 to 54 and every 1 to 3 years ages 55 to 64. Your provider may recommend more frequent eye exams if you have vision problems or glaucoma risk. Have an eye exam that includes an examination of your retina (back of your eye) at least every year if you have diabetes. IMMUNIZATIONS Commonly needed vaccines include: Flu shot: get one every year COVID-19 vaccine: ask your provider what is best for you Tetanus-diphtheria and acellular pertussis (Tdap) vaccine: have as one of your tetanus-diphtheria vaccines if you did not receive it as an adolescent Tetanus-diphtheria: have a booster (or Tdap) every 10 years Varicella vaccine: receive 2 doses if you never had chickenpox or the varicella vaccine and were born in 1980 or after Hepatitis B vaccine: receive 2, 3, or 4 doses, depending on your exact circumstances, if you did not receive these as a child or adolescent, until age 59 Shingles (herpes zoster) vaccine: at or after age 50 Ask your provider if you should receive other immunizations, especially if you have certain medical conditions, such as diabetes or are at increased risk for some diseases such as pneumonia. INFECTIOUS DISEASE SCREENING Screening for hepatitis C: all adults ages 18 to 79 should get a one-time test for hepatitis C. Screening for human immunodeficiency virus (HIV): all people ages 15 to 65 should get a one-time test for HIV. Depending on your lifestyle and medical history, you may need to be screened for infections such as syphilis, chlamydia, and other infections. LUNG CANCER SCREENING You should have an annual screening for lung cancer with low-dose computed tomography (LDCT) if: You are age 50 to 80 years AND You have a 20 pack-year smoking history AND You currently smoke or have quit within the past 15 years OSTEOPOROSIS SCREENING If you are age 50 to 64 and have risk factors for osteoporosis, you should discuss screening with your provider. Risk factors can include long-term steroid use, low body weight, smoking, heavy alcohol use, having a fracture after age 50, or a family history of hip fracture or osteoporosis. Osteoporosis PHYSICAL EXAM All adults should visit their provider from time to time, even if they are healthy. The purpose of these visits is to: Screen for diseases Assess risk of future medical problems Encourage a healthy lifestyle Update vaccinations and other preventive care services Maintain a relationship with a provider in case of an illness Your height, weight, and body mass index (BMI) should be checked at every exam. During your exam, your provider may ask you about: Depression and anxiety Diet and exercise Alcohol and tobacco use Safety, such as use of seat belts and smoke detectors Your medicines and risk for interactions PROSTATE CANCER SCREENING If you're 55 through 69 years old, before having the test, talk to your provider about the pros and cons of having a PSA test. Ask about: Whether screening decreases your chance of dying from prostate cancer. Whether there is any harm from prostate cancer screening, such as side effects from testing or overtreatment of cancer when discovered. Whether you have a higher risk of prostate cancer than others. If you are age 55 or younger, screening is not generally recommended. You should talk with your provider about if you have a higher risk for prostate cancer. Risk factors include: Having a family history of prostate cancer (especially a brother or father) Being If you choose to be tested, the PSA blood test is repeated over time (yearly or less often), though the best frequency is not known. Prostate examinations are no longer routinely done on men with no symptoms. Prostate cancer SKIN EXAM Your provider may check your skin for signs of skin cancer, especially if you're at high risk. People at high risk include those who have had skin cancer before, have close relatives with skin cancer, or have a weakened immune system. TESTICULAR EXAM The US Preventive Services Task Force (USPSTF) now recommends against performing testicular self-exams. Doing testicular self-exams has been shown to have little to no benefit. Quality Reporting (2019) Adult ([facility] 138//) Smoking risk assessment performed?: Yes Patient Tobacco Use Status: Never used Tobacco Depression screening performed: Yes Screen Results: Yes Negative screen Systolic BP not done?: No BMI screening not done: No Sexual Activity Screening ([facility] 153) Sexually active?: Yes Fall Risk Screening ([facility] 139) Last assessed Fall Risk: 11/28/24 Fall risk assessment: No Falls in past year Dementia Assessment ([facility] 149) Cognitive assessment recorded: Yes Assessment of cognition with standardized tool: Yes Depression/Bipolar (159/160/161/177) PHQ-9: Total score: 0 Ophthalmol:Cataracts Visual Acuity (133) Visual acuity exam performed: Yes (see results ) Coding Level of Care Code Medicare Subsequent (G0439) Est Pt Level 4 (81887) Diagnoses Encounter for subsequent annual wellness visit (AWV) in Medicare patient Z00.00 ACP (advance care planning) Z71.89 Cervical radiculopathy M54.12 Coronary artery disease involving [place] coronary artery of [place] heart without angina pectoris I25.10 Coronary Disease-Associated Artery/Lesion type: [place] artery [place] vs. transplanted heart: [place] heart Associated angina: without angina Pulmonary fibrosis J84.10 Primary hypertension I10 Hypertension type: primary hypertension DM type 2 causing complication E11.8 Obesity (BMI 30-39.9) E66.9 Vegetarian diet Z78.9 Microalbuminuria R80.9 Immunization counseling Z71.85 Mixed hyperlipidemia E78.2 Hyperlipidemia type: mixed hyperlipidemia CPT Codes Advance Care Planning - Time spent: 1-15 minutes, not on file (3774052180) Vision Screening - Vision Screenin - Vision Screening ([id number]) Additional Codes PHQ-9 - 13502 - PHQ-9 Billing: Yes ([id number]) Advance Care Planning Advance Care Planning discussion: Exists, not on file Date of discussion: 11/28/24 Forms completed: Health Care Proxy, MOLST and Living will Time spent: 1-15 minutes, not on file Actual minutes spent: 5
[2024-11-28 12:12] VITALS: BP 134/68; PULSE 80; RESP 14; TEMP 36.6; O2SAT 97; BMI 31.5
--- OUTSIDE RECORDS SUMMARY | 2024-11-28 14:32 | XMS_ITS | Patient Health Record ---
[facility] Address [address] [place] [address] Care Team Providers Care Gravity Manager Name Role Phone Scarlett RIVERA, Reid Primary Care Provider Unavail able Berenice Gómez Unavailable [phone] Reason For Referral No Information Problems Problem Type SNOMED Code ICD Code Onset Dates Problem Status W/U Status Risk Notes Problem Bursitis (10399649) Bursitis (727.3) Active confirmed Problem Calcaneal spur (51394770) Calcaneal spur (726.73) Active confirmed Problem Myositis (54923689) Myositis (729.1) Active confirmed Problem Pain in limb (44871651) Pain in Limb (729.5) Active confirmed Problem Plantar fasciitis (089863498) Plantar Fasciitis (728.71) Active confirmed Plan Of Treatment No Information
== END 2024-11-28 12:57 | disposition home or self-care (01) ==
LOC: HO.HMCFM 12:03
PROVIDERS: PCP Nurse Practitioner Family; Visit Provider Nurse Practitioner Family
DX: Z00.00 Encounter for general adult medical examination without abnormal findings (principal); J84.10 Pulmonary fibrosis, unspecified; E11.8 Type 2 diabetes mellitus with unspecified complications; M54.12 Radiculopathy, cervical region; Z71.89 Other specified counseling; I25.10 Atherosclerotic heart disease of native coronary artery without angina pectoris; I10 Essential (primary) hypertension; E66.9 Obesity, unspecified; Z78.9 Other specified health status; R80.9 Proteinuria, unspecified; Z71.85 Encounter for immunization safety counseling; E78.2 Mixed hyperlipidemia

== ENCOUNTER → 2024-11-28 12:02 | Outpatient (BNVA) | payer MEDICARE, SELFPAY | PROVIDERS: PCP Nurse Practitioner Family; Visit Provider Nurse Practitioner Family | DX: Z00.00 Encounter for general adult medical examination without abnormal findings (principal); I10 Essential (primary) hypertension; I25.10 Atherosclerotic heart disease of native coronary artery without angina pectoris; E66.9 Obesity, unspecified; J44.9 Chronic obstructive pulmonary disease, unspecified; E11.9 Type 2 diabetes mellitus without complications; N40.1 Benign prostatic hyperplasia with lower urinary tract symptoms; R35.1 Nocturia; M54.12 Radiculopathy, cervical region; R80.9 Proteinuria, unspecified; J84.10 Pulmonary fibrosis, unspecified; E78.2 Mixed hyperlipidemia; Z71.89 Other specified counseling; Z78.9 Other specified health status; Z71.85 Encounter for immunization safety counseling; Z87.891 Personal history of nicotine dependence; Z79.82 Long term (current) use of aspirin; Z68.31 Body mass index [BMI] 31.0-31.9, adult | CPT/HCPCS: 83036; 96127; 99212 ==

== ENCOUNTER 2024-12-11 14:01 | Outpatient (REF) | payer MEDICARE, SELFPAY ==
--- OUTSIDE RECORDS SUMMARY | 2024-12-11 16:31 | XMS_ITS ---
Patient Health Record Created on: December 11, 2024
[2024-12-11 18:31] LABS: Microalbum/Creatinine Ratio Ur 25.7 ug/mg cr (<30)
[2024-12-11 18:35] LABS: Alanine Aminotransferase 14 U/L (0-40); Albumin Level 4.2 g/dL (3.5-5.0); Alkaline Phosphatase 71 U/L (39-117); Anion Gap 10 (12-20); Aspartate Amino Transferase 25 U/L (5-37); Blood Urea Nitrogen 19 mg/dL (9-16); Calcium 9.4 mg/dL (8.4-10.2); Carbon Dioxide 26 mmol/L (22-29); Chloride 105 mmol/L (96-108); Cholesterol 197 mg/dL (<200); Estimated Glomerular Filt Rate > 60; HDL Cholesterol 49 mg/dL (>40); Potassium 4.3 mmol/L (3.3-5.1); Sodium 137 mmol/L (135-145); Total Protein 7.1 g/dL (6.5-8.0); Triglycerides 116 mg/dL (<150)
[2024-12-11 18:50] LABS: PSA,Total (Free>4and<10) 3.08 ng/mL (0.00-4.00)
[2024-12-11 18:59] LABS: Folate 8.6 ng/mL (> or = 4.0); Vitamin B12 490 pg/mL (200-900)
== END 2024-12-11 14:02 | disposition home or self-care (01) ==
LOC: HO.WFDLDS 14:01
PROVIDERS: Nurse Practitioner Family; Visit Provider Nurse Practitioner Family
DX: Z12.5 Encounter for screening for malignant neoplasm of prostate (principal); R35.1 Nocturia; R97.20 Elevated prostate specific antigen [PSA]; I10 Essential (primary) hypertension; I25.10 Atherosclerotic heart disease of native coronary artery without angina pectoris; E78.2 Mixed hyperlipidemia
CPT/HCPCS: 36415; 80053; 80061; 82043; 82570; 82607; 82746; 84153

== ENCOUNTER 2025-01-05 08:34 | Outpatient (REF) | payer MEDICARE, SELFPAY ==
--- NOTE | ~2025-01-05 | US_ITS ---
CLINICAL HISTORY: R35.1 - Nocturia US Renal Comparison: None provided Findings: Right kidney normal size and echotexture, 10 x 6.5 x 5.8 cm length. Left kidney normal size and echotexture, 10.7 x 6 x 5.2 cm length. Moreover, upper pole medullary region anechoic focus with posterior acoustic enhancement, 1.3 x 1.4 x 1.4 cm; simple cyst. No collecting system dilatation of either kidney. Normal color Doppler. Urinary bladder is unremarkable. Prevoid volume 212 mL. Postvoid volume 103 mL. Bilateral ureteral jets are visualized. The prostate is enlarged, 50.8 mL volume. IMPRESSION: 1. Urinary retention. This document has been electronically signed by: José Gonsalez MD on 01/05/2025 19:06:15
--- OUTSIDE RECORDS SUMMARY | 2025-01-05 08:57 | XMS_ITS | Patient Health Record ---
[facility] Address [address] [place] [address] Care Team Providers Care Fisheries Officer Name Role Phone Scarlett RIVERA, Reid Primary Care Provider Unavail able Berenice Gómez Unavailable [phone] Reason For Referral No Information Problems Problem Type SNOMED Code ICD Code Onset Dates Problem Status W/U Status Risk Notes Problem Bursitis (23530332) Bursitis (727.3) Active confirmed Problem Calcaneal spur (56777210) Calcaneal spur (726.73) Active confirmed Problem Myositis (30601087) Myositis (729.1) Active confirmed Problem Pain in limb (64706314) Pain in Limb (729.5) Active confirmed Problem Plantar fasciitis (972397750) Plantar Fasciitis (728.71) Active confirmed Plan Of Treatment No Information
== END 2025-01-05 08:35 | disposition home or self-care (01) ==
LOC: HO.HMGCX 08:34
PROVIDERS: PCP Nurse Practitioner Family; Visit Provider Nurse Practitioner Family
DX: R35.1 Nocturia (principal); R97.20 Elevated prostate specific antigen [PSA]
CPT/HCPCS: 76770

== ENCOUNTER → 2025-01-05 08:36 | Outpatient (BNV) | payer MEDICARE, SELFPAY | PROVIDERS: PCP Nurse Practitioner Family; Visit Provider Radiology Diagnostic Radiology | DX: R33.9 Retention of urine, unspecified (principal) | CPT/HCPCS: 76770 ==

== ENCOUNTER → 2025-01-08 14:52 | Outpatient (REF) | payer MEDICARE, SELFPAY ==
--- NOTE | 2025-01-08 14:59 | CA_ITS ---
Transthoracic Echocardiogram Patient (Last, First, Middle): Soto Iqbal, Gender: M Date of : 1945 Age: 79 Procedure Date: 01/08/2025 Procedure Type: Transthoracic Echocardiogram Location: OP Height: 182.88 cm Weight: 105.24 kg BSA: 2.27 m2 Heart Rate: 70 bpm BP: 134 / 68 mmHg Credit Administration Specialist: SB Referring MD: Libia Mcgovern [facility] Maturity Checker: Howard Rainey MD Symptoms: I25.10 - Atherosclerotic heart disease of craig coronary artery without... Study Quality: Technically Difficult ECG Rhythm: Sinus Conclusions: - 1. Normal LV ejection fraction of 65-70% 2. Limited visualization of cardiac valves with normal cardiac valves with Dopplers 3. No gross pericardial effusion Findings Procedure Information Contrast agent, definity, is being given per protocol without apparent complications. The quality of the study was technically difficult. The study quality is limited by lung artifact. Left Ventricle Normal left ventricular size, thickness, and systolic function. The visually estimated ejection fraction is between 65-70%. Spectral Doppler is indicative of a normal filling pattern. Right Ventricle The right ventricle was not well visualized. There is normal right ventricular systolic function. Atria The left atrium is normal in size. Interatrial shunt cannot be excluded. The right atrium was not well visualized. Aortic Valve The aortic valve was not well visualized. There is no aortic valve stenosis. There is no aortic valve regurgitation. Mitral Valve The mitral valve was not well visualized. There is trace mitral valve regurgitation. There is no mitral valve stenosis. Pulmonic Valve The pulmonic valve was not well visualized. Tricuspid Valve The tricuspid valve was not well visualized. Tricuspid regurgitation envelope is inadequate for calculation of right ventricular systolic pressure. Great Vessels All visible segments of the aorta are normal in size. The pulmonary artery was not well visualized. There is no dilatation of the ascending aorta measuring 3.30 cm. Venous The inferior vena cava is normal in size and collapses greater than 50% with inspiration. Pericardium/Pleural There is no evidence of pericardial effusion. Prior Study Comparison No prior study available for comparison. Measurements 2D Linear Measurements IVSd: 1.16 0.6-0.9/0.6-1.0 cm LVIDd: 5.88 3.9-5.3/4.2-5.9 cm LVIDd Index: 2.59 2.4-3.2/2.2-3.1 cm/m2 LVIDs: 4.06 2.0-3.6 cm LVPWd: 0.88 0.7-1.1 cm LA Diam: 4.20 2.7-3.8/3.0-4.0 cm LAIDs Index: 1.85 1.5-2.3 cm/m2 LV Mass: 305.04 67-162/88-224 g LV Mass Index: 134.38 43-95/49-115 g/m2 LVOT Diam: 2.30 3.0+(-)1.3 cm 2D Systolic Function EF 4C: 67.10 >55% EF 2C: 69.40 >55% EF BiP: 67.30 >55% Mitral Valve MV Pk E: 0.67 MV PK A: 0.73 MV Decel Time: 183.00 E/A: 0.90 E'Lateral: 7.18 E'Medial: 5.22 E/E' Med: 12.80 E/E' Lat: 9.30 PHT: 54.00 MVA PHT: 4.07 Decel [place]: 3.65 Aortic Valve AoV Pk Mario: 1.18 AoV Pk Grad: 6.00 WENDI: 3.73 LVOT LVOT Pk Mario: 1.06 LVOT Mn Mario: 0.67 LVOT VTI: 0.21 LVOT Pk Grad: 4.00 LVOT Mn Grad: 2.00 LVOT Diam: 2.30 LVOT Area: 4.15 Diastolic Function MV Pk E: 0.67 MV Pk A: 0.73 E/A: 0.90 E'Medial: 5.22 E/E' Med: 12.80 E' Laterial: 7.18 E/E' Lat: 9.30 Right Ventricle TVS' Mario: 10.70 Tricuspid Valve RA Press: 3.00 Great Vessels Aorta Sinus of Valsalva: 3.70 2.0-3.5 cm Ao Asc: 3.30 2.1-3.4 cm Ao Arch: 3.20 Pulmonary Veins Pulm Vein S/D 1.60 Pulmonary Valve PV Pk Mario: 0.93 Peak PV Grad: 3.00 Updated in Other Vendor System with Status of Final Howard Rainey MD electronically signed on 01/09/2025 12:47:38 PM with status of Final
--- OUTSIDE RECORDS SUMMARY | 2025-01-08 19:05 | XMS_ITS | Patient Health Record ---
Author Organization [facility] Address [address] [place] [address] Care Team Providers Care Deputy Sheriff/Investigator Name Role Phone Scarlett RIVERA, Reid Primary Care Provider Unavail able Berenice Gómez Unavailable [phone] Reason For Referral No Information Problems Problem Type SNOMED Code ICD Code Onset Dates Problem Status W/U Status Risk Notes Problem Bursitis (48121165) Bursitis (727.3) Active confirmed Problem Calcaneal spur (52773834) Calcaneal spur (726.73) Active confirmed Problem Myositis (79758860) Myositis (729.1) Active confirmed Problem Pain in limb (53460567) Pain in Limb (729.5) Active confirmed Problem Plantar fasciitis (656602892) Plantar Fasciitis (728.71) Active confirmed Plan Of Treatment No Information
== END ==
LOC: HO.CARD 14:52
PROVIDERS: PCP Nurse Practitioner Family; Visit Provider Nurse Practitioner Family
DX: I11.9 Hypertensive heart disease without heart failure (principal); I25.10 Atherosclerotic heart disease of native coronary artery without angina pectoris; E78.2 Mixed hyperlipidemia
CPT/HCPCS: 93306; Q9957

== ENCOUNTER → 2025-01-08 14:59 | Outpatient (BNV) | payer MEDICARE, SELFPAY | PROVIDERS: PCP Nurse Practitioner Family; Visit Provider Internal Medicine Cardiovascular Disease | DX: I25.10 Atherosclerotic heart disease of native coronary artery without angina pectoris (principal) | CPT/HCPCS: 93306 ==

== ENCOUNTER 2025-01-10 14:59 | Outpatient (AMB) | payer MEDICARE, SELFPAY ==
--- NOTE | 2025-01-10 15:27 | A.OFFVIS_ITS ---
Intake Visit Reasons: 2m/US/PSA Intake Note: Patient is present for 2M/US/PSA Urology Medication:NONE Antibiotic Allergy:NONE Blood Thinner:ASPIRIN Managed Services Consultant Required: No Allergies No Known Allergies Allergy (Verified 01/10/25 20:44) Medication List - Last Reconciled 01/10/25 by MYLES Charles- albuterol sulfate 90 mcg/actuation 2 puffs inhalation QID PRN albuterol sulfate 2.5 mg inhalation alcohol swabs pad topical BID aspirin 81 mg PO DAILY blood sugar diagnostic (FreeStyle Lite Strips) As directed blood-glucose meter (FreeStyle Lite Meter kit) As directed budesonide-formoterol 80-4.5 mcg/actuation (Breyna) 2 puffs inhalation HPI Comments Details: Waldemar is a very pleasant 79-year-old male patient of Dr. Mcgovern. He has a past medical history of obesity, COPD, DM2, HLD, HTN, BPH with nocturia, cervical radiculopathy, and former smoker. He presents to the office today for follow-up. Of note, patient was seen approximately 2 months ago as a new patient for an elevated PSA at which time redraw of PSA and a retroperitoneal ultrasound was ordered for further assessment evaluation. These results were reviewed and communicated with the patient today. 01/13 bilateral kidneys are normal in size and echotexture. 1.4 cm simple left renal cysts. No collecting system dilatation of either kidney. The urinary bladder is unremarkable. The prostate is enlarged measuring 51 mL. PSAs are as follows: PSA: 09/13 4.1, 12/14 3.1 We did discuss decrease in PSA and potential causes of elevated PSA/labile PSA. We also discusse enlarged prostate noted on imaging and further interventions and risks and benefits of these interventions. He continues to deny any bothersome urinary issues or concerns. He denies any known family history of p rostate cancer. He does report episodes of nocturia up to 3 times per night however feels this is manageable independently. He denies urinary urgency, urinary frequency, incontinence, hematuria, dysuria, foul smelling urine, changes to urinary stream, flank pain, fever, and or chills. In office urinalysis results were reviewed with the patient today. All questions were answered. 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 He otherwise offers no other issues or concerns at this time. [facility] Medical History No pertinent past medical history No pertinent family history Surgical History (Updated 08/22/24 @ 13:34 by Devorah Tobias MA) No pertinent past surgical history Social History (Updated 08/22/24 @ 13:33 by Devorah Tobias MA) Household Members: Spouse Both parents involved: No Caregiver staying overnight: No Housing: House Are you a primary resident care spec to a significant other at home: No Do you presently have visiting nurse or other home services: No 75 years or older and lives alone: No Alcohol intake: current Alcohol intake frequency: a few times a month Patient Tobacco Use Status: Never used Tobacco e-Cigarette/Vaping Use: Never Used Second Hand Smoke Exposure: No service: No Current occupational status: retired Cognitive needs: No Hearing needs: No Vision needs: No Review of Systems Const All systems reviewed & are unremarkable except as noted in HPI and below Physical Exam Const General: cooperative, healthy appearing, comfortable, no acute distress, well developed, alert and awake Orientation/consciousness: patient oriented x3 Limitations: no limitations HEENT Head: Yes normal to inspection, Yes normocephalic and Yes atraumatic Ears: hearing grossly normal bilaterally Eyes General: appearance normal, both eyes and all related structures Neck Neck: Yes normal visual inspection and Yes trachea midline Chest Chest palpation & inspection: normal inspection of the chest Resp Effort & Inspection: normal respiratory effort and able to speak in complete sentences Cardio Rate: regular rate GI Inspection: Yes normal to inspection General: Yes no CVA tenderness Back/Spine/Pelvis Back: no CVA tenderness Skin General skin exam: no rashes or lesions noted Neuro General: patient oriented x3 Extrem General: Yes normal to inspection Psych Appearance: grossly normal and well kempt Mental Status: mental status grossly normal Speech and movement: Normal speech and movement present and Clear speech present Affect: normal affect Attitude: cooperative Thought process: Normal thought process present Thought content: Normal thought content present Insight: Fair insight present (Psych) Judgement: Fair judgement present (Psych) Results AMB Urinalysis, Automated UA Leukoctes 0 Chen/uL Last Edit by PAPO Johns on 01/10/25 16:00 UA Nitrite Negative Last Edit by PAPO Johns on 01/10/25 16:00 UA Urobilinogen 0.2 mg/dL Last Edit by PAPO Johns on 01/10/25 16:0 0 UA Protein 15 mg/dL Last Edit by PAPO Johns on 01/10/25 16:00 UA pH 6.0 Last Edit by Frank Frias CCM on 01/10/25 16:00 UA Blood 0 Nathan/uL Last Edit by Frank Frias [place] on 01/10/25 16:00 UA Specific [place] 1.020 Last Edit by Frank Frias [place] on 01/10/25 16: 00 UA Ketone Negative Last Edit by PAPO Johns on 01/10/25 16:00 UA Bilirubin 0 mg/dL Last Edit by Frank Frias [facility] on 01/10/25 16:00 UA Glucose 0 mg/dL [facility] 01/10/[facility] 16:00 Results Reviewed Results Reviewed: Laboratory Last Values Urine pH (Auto) 6.0 01/10/25 16:00 Specific [place] (Auto) 1.020 01/10/25 16:00 Urine Protein (Auto) 15 mg/dL 01/10/25 16:00 Glucose (UA)(Auto) 0 mg/dL 01/10/25 16:00 Urine Ketones (Auto) Negative 01/10/25 16:00 Urine Blood (Auto) 0 Nathan/uL 01/10/25 16:00 Urine Nitrite (Auto) Negative 01/10/25 16:00 Urine Bilirubin (Auto) 0 mg/dL 01/10/25 16:00 Urine Urobilinogen (Auto) 0.2 mg/dL 01/10/25 16:00 Leukocyte Esterase (Auto) 0 Chen/uL 01/10/25 16:00 Date of Service: 01/05/25 Procedure(s): US retroperitoneal comp Findings: Right kidney normal size and echotexture, 10 x 6.5 x 5.8 cm length. Left kidney normal size and echotexture, 10.7 x 6 x 5.2 cm length. Moreover, upper pole medullary region anechoic focus with posterior acoustic enhancement, 1.3 x 1.4 x 1.4 cm; simple cyst. No collecting system dilatation of either kidney. Normal color Doppler. Urinary bladder is unremarkable. Prevoid volume 212 mL. Postvoid volume 103 mL. Bilateral ureteral jets are visualized. The prostate is enlarged, 50.8 mL volume. IMPRESSION: 1. Urinary retention. Assessment & Plan Assessment & Plan (1) Elevated PSA, less than 10 ng/ml: Code(s): R97.20 - Elevated prostate specific antigen [PSA] Category: Medical (2) Nocturia: Code(s): R35.1 - Nocturia Category: Medical (3) Enlarged prostate: Code(s): N40.0 - Benign prostatic hyperplasia without lower urinary tract symptoms Category: Medical (4) Renal cyst: Code(s): N28.1 - Cyst of kidney, acquired Category: Medical Plan In office urinalysis results reviewed with the patient today; as noted above. We discussed potential causes of elevated/labile PSA as well as further treatment options and risks and benefits of these treatment options. Recent retroperitoneal ultrasound results reviewed with the patient today; as noted above. We did discussed further treatment options of enlarged prostate to include surveillance monitoring verses initiation of finasteride verses cystoscopy to further assess potential for prostate procedure; patient to continue with surveillance monitoring at his he does not feel he has any bothersome urinary issues or concerns at this time We did discussed the importance of limiting fluids 2-3 hours prior to bed to decrease episodes of nocturia. He reports be happy with current voiding parameters. Follow-up in 6 months with [facility]; or sooner with any issues, concerns, and or questions. Orders: Orders AMB Urinalysis Automated Today Z13.9 - Encounter for screening, unspecified Patient Instructions: The patient had an opportunity to ask questions regarding the treatment plan. All questions were answered. Physical exam, labs, and imaging were discussed and reviewed in detail. As well as risks, benefits, and discussion of treatment c hoices. No major barriers to understanding were identified. The patient expressed understanding and agreement with the above treatment plan. The patient was made aware they should contact our office by phone for worsening of their current condition, the appearance of new symptoms, or with any questions or concerns. Compliance is encouraged with any medications and follow up testing that is ordered. It is a privilege to be allowed the opportunity to participate in? your urological care.? Again, if you have any questions or concerns If you have any questions or concerns please do not hesitate to contact me. The office is [phone]. This note is constructed using voice recognition software. While every effort has been made to ensure accuracy hr generalist errors may have been included. Yours sincerely, MYLES Charles- Coding Level of Care Code Est Pt Level 3 (06172) Complex EM visit Add On G2211 Diagnoses Elevated PSA, less than 10 ng/ml R97.20 Nocturia R35.1 Enlarged prostate N40.0 Renal cyst N28.1
--- OUTSIDE RECORDS SUMMARY | 2025-01-10 21:14 | XMS_ITS | Patient Health Record ---
Author Organization [facility] Address [address] [place] [address] Care Team Providers Care Soil Conservation Teacher Name Role Phone Scarlett RIVERA, Reid Primary Care Provider Unavail able Berenice Gómez Unavailable [phone] Reason For Referral No Information Problems Problem Type SNOMED Code ICD Code Onset Dates Problem Status W/U Status Risk Notes Problem Bursitis (36070181) Bursitis (727.3) Active confirmed Problem Calcaneal spur (47371856) Calcaneal spur (726.73) Active confirmed Problem Myositis (26834897) Myositis (729.1) Active confirmed Problem Pain in limb (37612574) Pain in Limb (729.5) Active confirmed Problem Plantar fasciitis (870896129) Plantar Fasciitis (728.71) Active confirmed Plan Of Treatment No Information
== END 2025-01-10 15:49 | disposition home or self-care (01) ==
LOC: HO.HUSH 15:01
PROVIDERS: PCP Nurse Practitioner Family; Visit Provider Nurse Practitioner Family
DX: R97.20 Elevated prostate specific antigen [PSA] (principal); R35.1 Nocturia; N40.0 Benign prostatic hyperplasia without lower urinary tract symptoms; N28.1 Cyst of kidney, acquired; Z13.9 Encounter for screening, unspecified
CPT/HCPCS: 99213; G2211

== ENCOUNTER → 2025-01-10 14:59 | Outpatient (BNVA) | payer MEDICARE, SELFPAY | PROVIDERS: PCP Nurse Practitioner Family; Visit Provider Nurse Practitioner Family | DX: R97.20 Elevated prostate specific antigen [PSA] (principal); N40.1 Benign prostatic hyperplasia with lower urinary tract symptoms; R35.1 Nocturia; N28.1 Cyst of kidney, acquired | CPT/HCPCS: 81003; 99212 ==

== ENCOUNTER → 2025-02-27 09:56 | Outpatient (REF) | payer MEDICARE, SELFPAY ==
--- NOTE | ~2025-02-27 | NM_ITS ---
EXERCISE MYOCARDIAL PERFUSION STUDY INDICATION: Atherosclerotic cardiovascular disease to evaluate for myocardial ischemia TECHNIQUE: The patient was brought in for an exercise perfusion study on 02/27/2025. Patient performed exercise as per Brandon protocol and was injected 35 mCi of sestamibi once target heart rate was achieved. Images were obtained using the SPECT gamma camera interlaced with the gating device. Images were obtained in supine position. Resting perfusion study was performed on 02/28/2025. Patient was administered 5 mCi of sestamibi intravenously at rest. Images were then obtained in supine position. Images were processed with the software and compared side to side in short axis, horizontal long axis and vertical long axis views. Images obtained without without CT attenuation. Total DLP 111 mGy-cm FINDINGS: Raw images were reviewed The stress perfusion study showed nonattenuated images show some thinning of the inferolateral wall of the LV myocardium. Remainder of the LV myocardium is normally perfused. Attenuated corrected images show normal uptake of radiotracer in all segments of the LV myocardium.. The gated study shows normal LV systolic function with calculated LVEF of 57%. LV cavity is normal in size. The gated study shows normal systolic wall thickening and contraction of segments. Resting study shows no change in perfusion pattern compared to stress perfusion study. Gating at rest reveals normal systolic wall motion with ejection fraction at 56%. The findings are consistent with normal myocardial perfusion. NM/NM cardiolite stress test IMPRESSION: 1. Myocardial perfusion imaging study shows normal myocardial perfusion. 2. Gated LVEF is 57%. 3. Transient ischemic dilatation not present. EKG revealed negative for ischemia. Electronically signed by: Howard Rainey MD 03/01/2025 04:01 PM [facility]
--- NOTE | 2025-02-27 10:00 | CA_ITS ---
Acquisition Time: 2025-02-27 10:10:53 Total Exercise Time: 00:04:29 Test Indications: CAD Medications: ALBUTEROL INHALER ASA BREYNA INHALER ZETIA LISINOPRIL Protocol: ANNI Max HR: 137 BPM 95% of Pred: 143 BPM Max BP: 190/70 mmHG Max Work Load: 4.6 METS Exercise stress test with exercise 4 mins 29 secs of Anni Protocol held at Stage 1 with reduced speed at 1.4mph, achieving 95% MPHR, with reports of severe SOB, no chest pain, with isolated PACs and frequent PVCs with vent couplets, with normotesive response to exercise. Without any EKG changes meeting criteria for ischemia. In recovery, breathing improved and pt feeling back to baseline. Nuclear images pending. Test reviewed with Dr. Rainey. Referred By: Libia Mcgovern Electronically Signed By: Mehran Elizalde
== END ==
LOC: HO.CARD 09:56
PROVIDERS: PCP Nurse Practitioner Family; Visit Provider Nurse Practitioner Family
DX: I25.10 Atherosclerotic heart disease of native coronary artery without angina pectoris (principal)
CPT/HCPCS: 78452; 93017; A9500

== ENCOUNTER → 2025-02-27 10:00 | Outpatient (BNV) | payer MEDICARE, SELFPAY | PROVIDERS: PCP Nurse Practitioner Family | DX: I49.1 Atrial premature depolarization (principal); I49.3 Ventricular premature depolarization; R06.02 Shortness of breath | CPT/HCPCS: 93016; 93018 ==

== ENCOUNTER 2025-03-06 14:01 | Outpatient (AMB) | payer MEDICARE, SELFPAY ==
[2025-03-06 14:06] VITALS: BP 130/70; PULSE 78; BMI 31.9
--- NOTE | 2025-03-06 14:06 | MHC.OFFVIS ---
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 He has prior history of COPD, being treated by Pulmonary, had a chest CT for lung cancer evaluation which showed coronary calcium in LAD and RCA territory. Subsequently had a stress test which was negative for myocardial ischemia and echocardiogram shows normal LV ejection fraction without significant wall motion abnormality. Patient complains of exertional shortness of breath. Denies any exertional chest pain. Has not been doing wheezing. 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 He denies any prolonged palpitation, irregular heartbeat. No orthopnea, PND, leg edema. He was also noted to have mildly dilated pulmonary artery on the CT scan. Echocardiogram showed no evidence of pulmonary hypertension. He was prescribed statin and lisinopril but he said developed lightheadedness in his stopped both medications. Since then in his seems like he was prescribed ezetimibe and said had developed GI side effects and stopped it as well. Last LDL of 125 mg/dL COUNT INCLUDES THE [facility] Medical History No pertinent past medical history No pertinent family history Surgical History No pertinent past surgical history Social History Household Members: Spouse Both parents involved: No Caregiver staying overnight: No Housing: House Are you a primary child care coordinator to a significant other at home: No Do you presently have visiting nurse or other home services: No 75 years or older and lives alone: No Alcohol intake: current Alcohol intake frequency: a few times a month Patient Tobacco Use Status: Never used Tobacco e-Cigarette/Vaping Use: Never Used Second Hand Smoke Exposure: No service: No Current occupational status: retired Cognitive needs: No Hearing needs: No Vision needs: No Review of Systems Const Denies chills, Denies fatigue, Denies fever(s), Denies frequent falls, Denies weakness, Denies weight gain and Denies weight loss ENT Denies dizziness Card Denies chest pain, Denies chest pain with activity, Denies leg edema, Denies lightheadedness, Denies palpitations, Denies dyspnea, Reports dyspnea on exertion and Denies orthopnea Resp Denies cough, Denies dyspnea, Reports dyspnea on exertion and Reports wheezing GI Denies bloating and Denies change in bowel habits Musc Denies muscle weakness, Denies numbness and Denies tingling Neuro Denies dizziness, Denies frequent falls, Denies numbness, Denies tingling and Denies weakness Endo Denies fatigue and Denies palpitations Aller/Immun Reports wheezing Physical Exam Vital Signs: Last Vital Signs Pulse 78 03/06/25 14:06 BP 130/70 03/06/25 14:06 BMI result Body Mass Index 31.9 Const General: cooperative, comfortable, no acute distress, well developed, alert, awake and Physically active Nutritional Appearance: well nourished and overweight Orientation/consciousness: patient oriented x3 HEENT Head: Yes normocephalic and Yes atraumatic Neck Neck: Yes trachea midline, Yes supple and Yes no JVD Carotids: no bruits Resp Effort & Inspection: normal respiratory effort Auscultation: wheezes right lower Cardio Jugular venous distension: no JVD Rate: regular rate Rhythm: regular rhythm Heart sounds: S1 normal heart sound present, S2 normal heart sound present, no click, no gallops, no murmurs and no rubs GI Auscultation: normal bowel sounds Skin General skin exam: no rashes or lesions noted Neuro General: patient oriented x3 and no focal motor deficits Extrem General: Yes no clubbing, cyanosis or edema Office Procedures EKG Details: EKG shows normal sinus rhythm voltage criteria for LVH otherwise no significant ST-T wave changes [id number], Complete Assessment & Plan Assessment & Plan (1) CAD (coronary artery disease): Comment: mild aorta vascular, mitral annular and SEVERE LAD & RCA calcification, noted on imaging Code(s): I25.10 - Atherosclerotic heart disease of [place] coronary artery without angina pectoris Category: Medical Qualifiers: Associated angina: without angina Coronary Disease-Associated Artery/Lesion type: [place] artery [place] vs. transplanted heart: [place] heart Qualified Code(s): I25.10 - Atherosclerotic heart disease of [place] coronary artery without angina pectoris Plan: CAD as noted by severe LAD and RCA calcification with also aortic vascular calcification suggestive of underlying atherosclerotic which is not unusual in his elderly gentleman with prior smoking as well as elevated cholesterol level. However his myocardial perfusion imaging is within normal limits suggestive of overall no significant obstructive disease. He does have exertional shortness of breath which to me appears to be related to his underlying COPD. He has no other concerning symptoms. Agree with low-dose aspirin therapy. He has some side effects that were not suggestive of related to statins possibly related to lisinopril therapy. I therefore advised him to restart his atorvastatin therapy at 40 mg daily to target goal LDL less than 70 mg/dL. He is going to try the same. This will be followed through your office. He is advised to call me with if he develops any new symptoms. 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 Possibly related to underlying COPD. 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 Although the size is currently not at a concerning staged that requires any interventions. Can follow-up with repeat CT imaging in couple years. No medical therapy for the same. Will follow up in the clinic if need be. Thank you for allowing me to partake in his care Coding Level of Care Code New Pt Level 4 (67022) Diagnoses Coronary artery disease involving [place] coronary artery of [place] heart without angina pectoris I25.10 Associated angina: without angina Coronary Disease-Associated Artery/Lesion type: [place] artery [place] vs. transplanted heart: [place] heart Dilatation of pulmonic artery I28.8 CPT Codes EKG - CPT: 44246-[id number], Complete ([id number])
--- OUTSIDE RECORDS SUMMARY | 2025-03-06 18:16 | XMS_ITS | Patient Health Record ---
[facility] Address [address] [place] [address] Care Team Providers Care Business Services Clerk Name Role Phone Scarlett RIVERA, Reid Primary Care Provider Unavail able Berenice Gómez Unavailable [phone] Reason For Referral No Information Problems Problem Type SNOMED Code ICD Code Onset Dates Problem Status W/U Status Risk Notes Problem Bursitis (19097289) Bursitis (727.3) Active confirmed Problem Calcaneal spur (34997001) Calcaneal spur (726.73) Active confirmed Problem Myositis (20262982) Myositis (729.1) Active confirmed Problem Pain in limb (95398241) Pain in Limb (729.5) Active confirmed Problem Plantar fasciitis (816563117) Plantar Fasciitis (728.71) Active confirmed Plan Of Treatment No Information
== END 2025-03-06 14:24 | disposition home or self-care (01) ==
LOC: HO.HCS 14:02
PROVIDERS: PCP Nurse Practitioner Family; Visit Provider Internal Medicine Cardiovascular Disease
DX: I25.10 Atherosclerotic heart disease of native coronary artery without angina pectoris (principal); I28.8 Other diseases of pulmonary vessels
CPT/HCPCS: 93010; 99214

== ENCOUNTER → 2025-03-06 14:01 | Outpatient (BNVA) | payer MEDICARE, SELFPAY | PROVIDERS: PCP Nurse Practitioner Family; Visit Provider Internal Medicine Cardiovascular Disease | DX: I25.10 Atherosclerotic heart disease of native coronary artery without angina pectoris (principal); I28.8 Other diseases of pulmonary vessels | CPT/HCPCS: 93005; 99212 ==